=== PATIENT | female | born 1955 | race Caucasian/White ===

== ENCOUNTER 2018-08-04 14:05 | Emergency (ER) | payer BC ==
[2018-08-04 14:55] VITALS: BP 116/87
--- NOTE | 2018-08-04 15:03 | UC ---
Eye Complaint HPI - HPI Summary HPI Summary: 62-year-old female presents with one-day history of tenderness and mild swelling to the left upper eyelid. Denies injury, fever, chills, URI symptoms, eye redness or discharge, eye pain, or visual disturbances. - History of Current Complaint Chief Complaint: UCEye Stated Complaint: LEFT EYE COMPLAINT Time Seen by Provider: 08/04/18 14:43 Hx Obtained From: Patient Onset/Duration: Gradual Onset, Lasting Days - 1 Timing: Constant Severity Currently: Mild Pain Intensity: 1 Location of Injury: Eye Lid (upper) Aggravating Factor(s): Blinking, Other - tender to touch Alleviating Factor(s): Nothing Associated Signs And Symptoms: Positive: Swelling - Mild. Negative: Photophobia , Drainage (Clear), Drainage (Purulent), Vision Impairment Bilateral, Fever - Allergies/Home Medications Allergies/Adverse Reactions: Allergies Allergy/AdvReac Type Severity Reaction Status Date / Time metoclopramide Allergy Agitation Verified 08/04/18 14:50 PMH/Surg Hx/FS Hx/Imm Hx Previously Healthy: Yes Endocrine History: Diabetes, Hypothyroidism, Dyslipidemia Cardiovascular History: Hypertension GI/ History: Gastroesophageal Reflux - Surgical History Surgical History: Yes Surgery Procedure, Year, and Place: 2006- VEIN STRIPING; Rt POSTAURICULAR MASS - 11/17/11; PAROTIDECTOMY 12/05/11 - Family History Family History: noncontributory - Social History Occupation: Employed Full-time Lives: With Family Alcohol Use: Rare Substance Use Type: None Smoking Status (MU): Never Smoked Tobacco Review of Systems Constitutional: Negative Eyes: Other - upper left eyelid tenderness and swelling ENT: Negative Respiratory: Negative Cardiovascular: Negative Is Patient Immunocompromised?: No All Other Systems Reviewed And Are Negative: Yes Physical Exam Triage Information Reviewed: Yes Appearance: Well-Appearing, No Pain Distress, Obese Vital Signs: Initial Vital Signs Temp 97.4 F 08/04/18 14:45 Pulse 71 08/04/18 14:45 Resp 15 08/04/18 14:45 BP 116/87 08/04/18 14:45 Pulse Ox 98 08/04/18 14:45 Eyes: Positive: Conjunctiva Clear, Other: - Small horeolum noted near inner aspect of upper left eyelid with mild swelling. No conjuntival erythema, drainage, or FB noted.. Negative: Discharge ENT: Positive: Hearing grossly normal, Pharynx normal, TMs normal, Uvula midline. Negative: Nasal congestion, Nasal drainage, Tonsillar swelling, Tonsillar exudate, Sinus tenderness Neck: Positive: Supple, Nontender, No Lymphadenopathy Respiratory: Positive: Lungs clear, Normal breath sounds, No respiratory distress Cardiovascular: Positive: RRR, No Murmur Neurological: Positive: Alert Skin Exam: Normal Eye Complaint Course/Dx - Course Course Of Treatment: 62-year-old female presents with one-day history of left upper eyelid tenderness or swelling. Afebrile. A small hordeolum noted to the inner aspect of the left upper eyelid. Remainder of exam unremarkable. Recommend conservative treatment with warm compresses and OTC analgesics. She is already established with Dr. Kelly, ophthalmology, and is to follow-up with him in 3 days if no improvement in symptoms. Warning symptoms were reviewed with the patient. Verbalizes understanding and agrees with plan of care. - Differential Dx/Diagnosis Differential Diagnosis/HQI/PQRI: Conjunctivitis, Corneal Abrasion, Foreign Body Provider Diagnoses: Hordeolum Discharge - Sign-Out/Discharge Documenting (check all that apply): Patient Departure All imaging exams completed and their final reports reviewed: No Studies - Discharge Plan Condition: Stable Disposition: HOME Patient Education Materials: Stye (ED) Referrals: Misbah Loyd MD [Primary Care Provider] - Glenroy Kelly MD [Medical Doctor] - 3 Days (If no improvement) Additional Instructions: You have a condition called a hordeolum (stye) which is caused by a blockage of one of the glands that help lubricate the eye. This usually resolves on its own and is not serious. Apply a warm, moist compress to the affected eye for 15 minutes 4 times a day. You may take acetaminophen (Tylenol) according to directions as needed for pain. Follow up with Dr. Velarde, ophthalmology, in 3 days if symptoms persist or worsen. Call for appointment. Seek immediate medical attention in the emergency room if you develop fever greater than 100.5 F, have visual disturbances, pain in the eye, increased swelling, or pus draining from the eye. - Billing Disposition and Condition Condition: STABLE Disposition: Home
== END 2018-08-04 15:13 | disposition home or self-care (01) ==
LOC: UCCORT 14:05
DX: H00.014 Hordeolum externum left upper eyelid (principal); Z88.8 Allergy status to other drugs, medicaments and biological substances
CPT/HCPCS: 99211; G0463